=== PATIENT | female | born 1940 | race Caucasian/White ===

== ENCOUNTER 2017-08-03 11:01 | Inpatient (IN) | payer MEDICARE ==
[~2017-08-03] VITALS: Ht 162.6 cm; Wt 177.8 kg
[2017-08-03 11:05] VITALS: BP 113/68
[2017-08-03] MEDS ORDERED: LISINOPRIL20 MG PO (11:14)
[2017-08-03 11:15] LABS: ABSOLUTE BASOPHILS 0.1 thou/uL (0.0-0.2); ABSOLUTE EOSINOPHILS 0.1 thou/uL (0.0-0.7); ABSOLUTE LYMPHOCYTES 1.8 thou/uL (0.8-5.3); ABSOLUTE MONOCYTES 0.4 thou/uL (0.0-1.2); ABSOLUTE NEUTROPHILS 3.9 thou/uL (1.6-8.1); BASOPHILS 0.8 %; EOSINOPHILS 1.2 %; HEMATOCRIT 37.7 % (37.0-47.0); HEMOGLOBIN 12.6 gm/dL (12.0-15.0); LYMPHOCYTES 29.1 %; MCH 31.8 pg (26.0-34.0); MCHC 33.5 g/dL (28.0-37.0); MONOCYTES 5.8 %; MPV 8.4 fl. (7.2-11.1); NUCLEATED RBCS 0 /100WBC; PLATELET COUNT* 188 thou/uL (150-400); POLYS 63.1 %; RBC 3.97 mil/uL (4.20-5.00); RDW-CV 13.1 % (10.5-14.5); WBC 6.2 thou/uL (4.0-11.0)
[2017-08-03] MEDS ORDERED: CARBAMAZEPINE200 M3 PO (11:15)
[2017-08-03] MEDS ORDERED: TRAMADOL 50 MG50 MG PO (11:17)
[2017-08-03 11:23] LABS: ANION GAP 10 mmol/L (7-16); BUN 16 mg/dL (7-18); CALCIUM 8.5 mg/dL (8.5-10.1); CHLORIDE 100 mmol/L (98-107); CO2 25 mmol/L (21-32); CREATININE 0.9 mg/dL (0.6-1.3); GLUCOSE 127 mg/dL (70-99); POTASSIUM 3.8 mmol/L (3.5-5.1); SODIUM 135 mmol/L (136-145)
[2017-08-03 11:30] LABS: ALBUMIN 3.4 g/dL (3.4-5.0); ALKALINE PHOSPHATASE 102 U/L (46-116); LIPASE 252 U/L (73-393); SGOT 69 U/L (15-37); SGPT 58 U/L (30-65); TOTAL BILIRUBIN 0.6 mg/dL (<0.1-1.0); TOTAL PROTEIN 6.8 g/dL (6.4-8.2); TROPONIN-I LEVEL <0.06 ng/mL (<0.06)
[2017-08-03 14:47] VITALS: BP 115/64
[2017-08-03 15:10] VITALS: BP 153/68
--- NOTE | 2017-08-03 16:30 | NUR ---
PT ARRIVED TO THE FLOOR AT 1503 ACCOMPANIED BY ER NURSE. BEDSIDE REPORT RECIEVED. PT ORIENTED TO UNIT AN D SERVICES, FOOD AND DRINK OFFERED, MEDICATIONS VERIFIED, NURSING ASSESSMENTS COMPLETED. PT HD SURGERY YESTERDAY ON A HAMMER TOE AND HAS A DRESSING TO HER LEFT FOOT. C/O LEFT FOOT PAIN THAT WERE TREATED WITH PRN NORCO PER APR. PT SIGNED ALL ADMISSION PAPERWORK. VSS ON ROOM AIR AND TRACING SR ON THE MONITOR.
--- NOTE | 2017-08-03 17:34 | EKG ---
[place] [address] ELECTROCARDIOGRAM REPORT Name: JANN CEBALLOS Room: [address] IN [facility].#: [id number] Admission: 08/03/17 Attend Phys: Ernst Dick MD Discharge: Date of : 42 Report #: [id number] THIS REPORT FOR: //name// [facility] ED Test Date: 2017-08-03 Test Time: 11:12:08 Pat Name: JANN HONEYCUTT Department: Room: Gender: F Open Source Developer: : 1940 Requested By: Dewey Gibbs Order Number: [id number] MD: Alejandro Lopez Measurements Intervals [place] Rate: 53 P: 49 NE: 183 QRS: -17 QRSD: 158 T: 139 QT: 458 QTc: 430 Interpretive Statements Sinus bradycardia Left bundle branch block No previous ECG available for comparison Electronically Signed On 08-03-2017 17:33:59 CDT by Alejandro Lopez [email or web address] <ELECTRONICALLY SIGNED> By: Alejandro Lopez MD, [facility] 08/03/17 1733 1112 1112 Alejandro Lopez MD, FACC /EPI
--- NOTE | 2017-08-03 17:56 | NUR ---
PT REMAINS A&O X4, NO FURTHER C/O PAIN OR DISCOMFORT. PT ATE GREATER THAN 90% OF HER DINNER. HOURLY ROUNDING COMPLETED FOR COMFORRT AND SAFTEY. NURSING WILL CONTINUE TO MONITOR.
[2017-08-03 19:30] VITALS: BP 133/61
[2017-08-04] VITALS: BP 167/70
--- NOTE | 2017-08-04 03:47 | NUR ---
RECEIVED REPORT AND ASSUMED CARE AT 1900. VSS. CARDIAC MONITORING IN PLACE. PT REPORTS PAIN IN LEFT FOOT R/T RECENT HAMMER TOE SURGERY. PRN MEDICATION ADMIN PER ORDERS.ASSESSMENT COMPLETED CHARTED. SPOKE WITH PT ABOUT HOME MEDICATION. VERIFIED CARBAMAZEPINE ORDERED DOSE WITH PT HOME PHARMACY. DOSE CORRECTED IN PT MED REC, DOSE IS 800MG PO HS. ORDER ADDED TO PT EMAR, PT REFUSING CARBAMAZEPINE STATING THAT SHE IS GOING HOME TOMORROW AND DOES NOT WANT US TO BILL HER FOR THE MEDICATION AND THAT SHE WILL TAKE IT WHEN SHE GETS HOME. PT ON RA, UP WITH ASSIST R/T WBL LEFT FOOT. PT INCONT OF URINE AT TIMES. HOURLY ROUNDING COMPLETED AND ALL NEEDS MET. NURSING WILL CONTINUE TO MONITOR FOR REMIANDER OF THE SHIFT
[2017-08-04 04:00] VITALS: BP 162/64
[2017-08-04 04:56] LABS: ABSOLUTE EOSINOPHILS 0.1 thou/uL (0.0-0.7); ABSOLUTE LYMPHOCYTES 2.1 thou/uL (0.8-5.3); ABSOLUTE MONOCYTES 0.4 thou/uL (0.0-1.2); ABSOLUTE NEUTROPHILS 2.9 thou/uL (1.6-8.1); BASOPHILS 0.8 %; EOSINOPHILS 1.2 %; HEMATOCRIT 36.2 % (37.0-47.0); HEMOGLOBIN 12.1 gm/dL (12.0-15.0); LYMPHOCYTES 38.1 %; MCH 31.9 pg (26.0-34.0); MCHC 33.4 g/dL (28.0-37.0); MCV 95.5 fL (80.0-100.0); MONOCYTES 6.8 %; MPV 8.8 fl. (7.2-11.1); NUCLEATED RBCS 0 /100WBC; PLATELET COUNT* 161 thou/uL (150-400); POLYS 53.1 %; RBC 3.79 mil/uL (4.20-5.00); RDW-CV 13.2 % (10.5-14.5); WBC 5.4 thou/uL (4.0-11.0)
[2017-08-04 05:07] LABS: CALCIUM 8.6 mg/dL (8.5-10.1); CREATININE 0.7 mg/dL (0.6-1.3); POTASSIUM 4.3 mmol/L (3.5-5.1)
[2017-08-04 08:00] VITALS: BP 172/69
[2017-08-04 11:37] VITALS: BP 172/69
[2017-08-04 12:00] VITALS: BP 182/72
--- NOTE | 2017-08-04 13:18 | NUR ---
PT DC HOME TO SELF CARE. PT VERBALIZED UNDERSTANDING OF DC INSTRUCTIONS THAT INCLUDED MEDICATION TEACHING AND F/U CARE. ALL PERSONAL BELONGINGS TAKEN AT TIME OF DISCHARGE. PT TRANSPORFTED VIA W/C ACCOMPNAIED BY NURSINF STAFF AND TRANSPORTED BY [facility] VIA CAR.
--- NOTE | 2017-08-07 18:19 | CON ---
[address] [address] CONSULTATION Name: JANN CEBALLOS Room: [address] IN [facility].R.#: [id number] Admission: 08/03/17 Attend Phys: Ernst Dick MD Discharge: 08/04/17 Date of : 42 Report #: [id number] THIS REPORT FOR: //name// CC: Ernst Portlilo Nurse Practitioner at [facility] DATE OF SERVICE: 08/03/2017 CARDIOLOGY CONSULTATION HISTORY OF PRESENT ILLNESS: The patient is a 76-year-old white female who I was asked to see in the hospital after she had a syncopal spell. The patient has no previous history of heart disease. She apparently had surgery at [facility] yesterday by Dr. Doe for a hammertoe. Last night, she got up at 3:00in the morning to go to the bathroom and she fell. She struck her foot. The foot was hurting. She called Dr. Doe's office at 8:00 this morning to be seen. Her son took her to Dr. Doe's office. While sitting in a chair having her foot examined in Dr. Doe's office, she apparently became nauseated. She vomited. She apparently had a brief loss of consciousness. She was told that her heart rate got slow. An ambulance was called, she was brought here to [place] and admitted for further evaluation. Apparently, there is no seizure activity. She has had no recent chest pain. She does get short of breath with exertion. She has had no recent palpitations. She has had no blood in her stool. She denied any fever or vomiting blood. PAST MEDICAL HISTORY: Significant for previous bladder tuck, gallbladder surgery, hypertension, hyperlipidemia, manic depressive illness. MEDICATIONS: On admission consists of the following: She is on lisinopril, carbamazepine, tramadol. ALLERGIES: SHE HAS ALLERGY TO MULTIPLE MEDICATIONS INCLUDING SULFA DRUGS, NEOMYCIN, POLYMYXIN. FAMILY HISTORY: Father, heart disease. SOCIAL HISTORY: , lives here in [place]. No smoking. Rarely drinks alcohol. REVIEW OF SYSTEMS: She has had no strokes. Does have asthma. No history of peptic ulcer disease, liver disease, kidney disease. She just saw a psychiatrist in the past for manic depressive illness. No history of cancer. PHYSICAL EXAMINATION: GENERAL: Elderly, frail-appearing female [place] [address] CONSULTATION Name: JANN CEBALLOS Room: [address]#: [id number] Admission: 08/03/17 Attend Phys: Ernst Dick MD Discharge: 08/04/17 Date of : 42 Report #: [id number] VITAL SIGNS: She had a blood pressure of 110/60, pulse 60. She is afebrile. HEENT: She was anicteric, conjunctivae pink. Mucous membranes are moist. NECK: Veins nondistended. No carotid bruits. Neck supple. CHEST: Clear to auscultation. CARDIOVASCULAR: Regular rate and rhythm. ABDOMEN: Soft, nontender. EXTREMITIES: She has a dressing on her left distal foot. Right dorsalis pedis pulse 2+. SKIN: Warm and dry. NEUROLOGIC: Nonfocal. ECG showed sinus bradycardia with a left bundle branch block. Workup in the Emergency Room, she had a chest x-ray that showed normal heart size, clear lung leung. She had a CT scan of the chest that showed no pulmonary embolus. She had a CT scan of the head without contrast that showed no acute abnormality. LABORATORY DATA: Sodium 135, creatinine 0.9. Liver function studies were normal. Troponin 0.06. White blood cell count 6.2, hemoglobin 12.6. IMPRESSION AND RECOMMENDATIONS: 1. Syncope. Suspect vasovagal. Recommend no further cardiac workup. 2. Bradycardia. I would avoid beta blockers. 3. Hypertension. The patient has been on an CHICHI inhibitor. 4. Hyperlipidemia. The patient is no longer on a statin drug. 5. Manic depressive illness. 6. History of asthma. 7. Recent surgery for hammertoe. <ELECTRONICALLY SIGNED> By: Alejandro Lopez MD, [facility] 08/07/17 1819 1548 [id number] Lopez MD, FAC /nt
== END 2017-08-04 13:15 | disposition home or self-care (01) | DRG 308 ==
LOC: M.ERS 11:01 → M.2W 13:07 → M.TBA-ER 13:07 → M.2W 15:13
PROVIDERS: Emergency Medicine Emergency Medical Services; ADMIT Internal Medicine
DX: R00.1 Bradycardia, unspecified (principal); G92 Toxic encephalopathy; M81.0 Age-related osteoporosis without current pathological fracture; M19.90 Unspecified osteoarthritis, unspecified site; I10 Essential (primary) hypertension; J45.909 Unspecified asthma, uncomplicated; F31.9 Bipolar disorder, unspecified; E78.5 Hyperlipidemia, unspecified; M20.40 Other hammer toe(s) (acquired), unspecified foot; T50.905A Adverse effect of unspecified drugs, medicaments and biological substances, initial encounter; Z82.49 Family history of ischemic heart disease and other diseases of the circulatory system; Z90.49 Acquired absence of other specified parts of digestive tract; Z88.2 Allergy status to sulfonamides; Z88.8 Allergy status to other drugs, medicaments and biological substances; Z88.1 Allergy status to other antibiotic agents; Z91.040 Latex allergy status; I49.9 Cardiac arrhythmia, unspecified

== ENCOUNTER → 2017-11-01 | Outpatient (CLI) | payer MEDICARE ==
[~2017-11-01] MED LIST: CARBAMAZEPINE200 M3 PO; LISINOPRIL20 MG PO; TRAMADOL 50 MG50 MG PO
== END ==
LOC: M.RAD 09:01
DX: M51.36 Other intervertebral disc degeneration, lumbar region (principal); M19.90 Unspecified osteoarthritis, unspecified site; I10 Essential (primary) hypertension; J45.909 Unspecified asthma, uncomplicated; Z90.49 Acquired absence of other specified parts of digestive tract

== ENCOUNTER → 2018-12-11 | Outpatient (CLI) | payer MEDICARE ==
--- NOTE | 2018-12-11 15:34 | 2DMMODE ---
[place] [address] 2 D/M-MODE ECHOCARDIOGRAM Name: JANN CEBALLOS Room: [facility]#: [id number] Admission: 12/11/18 Attend Phys: Jaimie Russell Discharge: Date of : 42 Date of Service: 12/11/18 1534 Report #: [id number] THIS REPORT FOR: //name// APPROVED REPORT Study performed: 12/11/2018 14:03:52 EXAM: Comprehensive 2D, Doppler, and color-flow Echocardiogram Patient Location: Out-Patient BSA: 1.78 HR: 56 bpm BP: 120/70 mmHg Other Information Study Quality: Good Indications Murmur 2D Dimensions IVSd: 14.32 (7-11mm) LVOT Diam: 20.50 (18-24mm) LVDd: 35.72 mm PWd: 9.42 (7-11mm) Ascending Ao: 29.49 (22-36mm) LVDs: 25.84 (25-40mm) Aortic Root: 31.42 mm Volumes Left Atrial Volume (Systole) LA ESV Index: 15.00 mL/m2 Aortic Valve AoV Peak Tone.: 1.79 m/s AO Peak Gr.: 12.78 mmHg LVOT Max P.89 mmHg AO Mean Gr.: 7.26 mmHg LVOT Mean P.62 mmHg LVOT Max V: 1.49 m/s AO V2 VTI: 32.34 cm LVOT Mean V: 1.00 m/s HILL (VTI): 2.86 cm2 LVOT V1 VTI: 27.99 cm Mitral Valve E/A Ratio: 0.71 MV Decel. Time: 263.14 ms MV E Max Tone.: 0.62 m/s MV PHT: 76.31 ms MVA (PHT): 2.88 [place] [address] 2 D/M-MODE ECHOCARDIOGRAM Name: JANN CEBALLOS Room: [facility]#: [id number] Admission: 12/11/18 Attend Phys: Jaimie Russell Discharge: Date of : 42 Date of Service: 12/11/18 1534 Report #: [id number] TDI E/Lateral E': 10.33 E/Medial E': 12.40 Medial E' Tone.: 0.05 m/s Lateral E' Tone.: 0.06 m/s Pulmonary Valve PV Peak Tone.: 1.11 m/s PV Peak Gr.: 4.89 mmHg Tricuspid Valve RAP Estimate: 5.00 mmHg TR Peak Gr.: 17.88 mmHg RVSP: 22.88 mmHg PA Pressure: 22.88 mmHg Left Ventricle The left ventricle is normal size. There is normal LV segmental wall motion. Mild concentric left ventricular hypertrophy. Left ventricular systolic function is normal. The left ventricular ejection fraction is within the normal range. LVEF is 50-55%. Grade I - abnormal relaxation pattern. Right Ventricle The right ventricle is normal size. The right ventricular systolic function is normal. Atria The left atrium size is normal. The right atrium size is normal. Aortic Valve Mild aortic valve sclerosis. No aortic regurgitation is present. There is no aortic valvular stenosis. Mitral Valve Mitral valve leaflets are mildly calcified. Mild mitral regurgitation. No evidence of mitral valve stenosis. Tricuspid Valve The tricuspid valve is normal in structure. Mild tricuspid regurgitation. Pulmonic Valve The pulmonary valve is normal in structure. Mild pulmonic regurgitation[place] [address] 2 D/M-MODE ECHOCARDIOGRAM Name: JANN CEBALLOS Room: [facility]#: [id number] Admission: 12/11/18 Attend Phys: Jaimie Russell Discharge: Date of : 42 Date of Service: 12/11/18 1534 Report #: [id number] The aortic root is normal in size. IVC is normal in size and collapses >50% with inspiration. Pericardium There is no pericardial effusion. <Conclusion> The left ventricle is normal size. Mild concentric left ventricular hypertrophy. Left ventricular systolic function is normal. The left ventricular ejection fraction is within the normal range. LVEF is 50-55%. Grade I - abnormal relaxation pattern. The right ventricle is normal size. The left atrium size is normal. Mild aortic valve sclerosis. No aortic regurgitation is present. There is no aortic valvular stenosis. Mitral valve leaflets are mildly calcified. Mild mitral regurgitation. No evidence of mitral valve stenosis. The tricuspid valve is normal in structure. Mild tricuspid regurgitation. IVC is normal in size and collapses >50% with inspiration. There is no pericardial effusion. There is normal LV segmental wall motion. <ELECTRONICALLY SIGNED> By: Cristian Rausch MD, FACC 12/11/18 1534 1534 1534 Cristian Rausch MD, FACC /INF
== END ==
LOC: M.CRD 13:08
DX: Z12.31 Encounter for screening mammogram for malignant neoplasm of breast (principal); M85.80 Other specified disorders of bone density and structure, unspecified site; I08.8 Other rheumatic multiple valve diseases; Z78.0 Asymptomatic menopausal state

== ENCOUNTER 2020-07-13 10:32 | Emergency (ER) | payer MEDICARE ==
[~2020-07-13] VITALS: Ht 162.6 cm; Wt 77.1 kg
[2020-07-13] MEDS ORDERED: PROAIR HFA8.5 GM INH (10:46)
[2020-07-13] MEDS ORDERED: AUGMENTIN 875-1 EACH PO (11:10)
[2020-07-13 11:59] VITALS: BP 169/58
== END 2020-07-13 12:00 | disposition home or self-care (01) ==
LOC: M.ERS 10:32
DX: S61.411A Laceration without foreign body of right hand, initial encounter (principal); M19.90 Unspecified osteoarthritis, unspecified site; I10 Essential (primary) hypertension; Z88.1 Allergy status to other antibiotic agents; Z91.040 Latex allergy status; Z88.7 Allergy status to serum and vaccine; Z88.8 Allergy status to other drugs, medicaments and biological substances; Z88.2 Allergy status to sulfonamides; Z90.49 Acquired absence of other specified parts of digestive tract; W55.01XA Bitten by cat, initial encounter; Y93.89 Activity, other specified; Y92.89 Other specified places as the place of occurrence of the external cause; Y99.8 Other external cause status

== ENCOUNTER → 2020-08-04 | Outpatient (CLI) | payer MEDICARE ==
[~2020-08-04] MED LIST changes: +AUGMENTIN 875-1 EACH PO; +PROAIR HFA8.5 GM INH
== END ==
LOC: M.RAD 07-29 11:57
PROVIDERS: ATTEND Nurse Practitioner Family
DX: Z12.31 Encounter for screening mammogram for malignant neoplasm of breast (principal); N95.1 Menopausal and female climacteric states; M81.0 Age-related osteoporosis without current pathological fracture; N64.89 Other specified disorders of breast